=== PATIENT | male | born 1985 | race Caucasian/White ===

== ENCOUNTER 2025-01-11 00:50 | Emergency (ER) | payer OTHER ==
[2025-01-11] MEDS: Bacitracin/Neomycin/Polymyxin B Oint 0.9 GM U/D Packet TOP ONE (02:10)
== END 2025-01-11 02:20 | disposition home or self-care (01) ==
LOC: KA.ED 00:50
DX: S00.33XA Contusion of nose, initial encounter (principal); S00.81XA Abrasion of other part of head, initial encounter; W22.8XXA Striking against or struck by other objects, initial encounter; Y93.89 Activity, other specified
CPT/HCPCS: 70160; 99283